=== PATIENT | female | born 1960 | race Caucasian/White ===

== ENCOUNTER 2020-04-10 16:54 | Inpatient (IN) | payer OTHER ==
[~2020-04-10] VITALS: Ht 160 cm; Wt 63.0 kg
[2020-04-10] MEDS ORDERED: ASCORBIC ACID 500 MG TAB PO ONE (17:00)
[2020-04-10] MEDS ORDERED: ZINC SULFATE 220mg CAP or TAB PO ONE (17:00)
[2020-04-10] MEDS ORDERED: DexAMETHasone SOD PHOS 10MG/1ML VIAL INJ IV ONE (17:00)
[2020-04-10] MEDS ORDERED: DOXYCYCLINE 100MG/250ML 250 ML IV ONE (17:00)
[2020-04-10 18:18] LABS: CRP High Sensitivity 0.51 mg/dL (< 0.3)
[2020-04-10 18:29] LABS: Basophils # (auto) 0 10 ^3/uL (0-0.2); Basophils % (auto) 0.4 % (0.0-2.0); Eosinophils # (auto) 0 10 ^3/uL (0-0.8); Eosinophils % (auto) 0.4 % (0.0-7.0); Hematocrit 40.5 % (36.0-46.0); Hemoglobin 13.7 g/dL (12.2-16.2); Lymphocytes # (auto) 3.6 10 ^3/uL (0.4-5.4); Lymphocytes % (auto) 38.8 % (10.0-50.0); Mean Corpuscular Hemoglobin 31.5 pg (28.0-32.0); Mean Corpuscular Hgb Conc. 33.7 g/dL (32.0-36.0); Mean Corpuscular Volume 93.4 fL (80.0-100.0); Monocytes # (auto) 0.8 10 ^3/uL (0-1.3); Monocytes % (auto) 8.4 % (0.0-12.0); Neutrophils # (auto) 4.8 10 ^3/uL (1.6-8.6); Nucleated Red Blood Cells % 0.3 %; Platelet Count (auto) 222 10^3/uL (140-450); Red Blood Cells 4.34 10^6/uL (4.0-5.20); Red Cell Distribution Width 12.9 % (11.8-14.3); White Blood Cell 9.2 10^3/uL (4.4-10.8)
[2020-04-10 18:38] LABS: Albumin 3.4 g/dL (3.4-5.0); Anion Gap 5 (5-15); Blood Urea Nitrogen 17 mg/dL (7-18); Calcium 8.1 mg/dL (8.5-10.1); Carbon Dioxide 28 mmol/L (21-32); Chloride 106 mmol/L (98-107); Glucose 97 mg/dL (74-106); Sodium 139 mmol/L (136-145)
[2020-04-10 18:44] LABS: Alanine Aminotransferase 89 U/L (13-56); Alkaline Phosphatase 122 U/L (45-117); Aspartate Aminotransferase 30 U/L (15-37); BUN/Creatinine Ratio 17.7; Bilirubin, Total 0.3 mg/dL (0.2-1.0); GFR African American 76 mL/min; GFR Non-African American 63 mL/min
[2020-04-10 18:47] LABS: Potassium 2.7 mmol/L (3.5-5.1)
[2020-04-10] MEDS ORDERED: POTASSIUM CHL 20 Meq TABLET PO ONE ×2 (18:53→19:00)
[2020-04-10] MEDS ORDERED: POTASSIUM CHLORIDE 60 MEQ, LIDOCAINE 1% (LOCAL ANESTH.) 6 ML in SODIUM CHL 0.9% 500 ML IV ONE (19:00)
[2020-04-10] MEDS ORDERED: ACETAMINOPHEN 500 MG TAB PO PRN (19:45)
[2020-04-10] MEDS ORDERED: MORPHINE SULF INJ 2 MG/ML SYRINGE 1ML IV PRN (19:45)
[2020-04-10] MEDS ORDERED: ONDANSETRON HCL 4 MG/2 ML VIAL IV PRN (19:45)
[2020-04-10] MEDS ORDERED: DOCUSATE SOD 100 MG CAP PO PRN (19:45)
[2020-04-10] MEDS ORDERED: NITROGLYCERIN 0.4 MG SL TAB SL PRN (19:45)
[2020-04-10] MEDS ORDERED: SOD CHL 0.9%/ KCL 20MEQ 1,000 ML IV SCH (19:45)
[2020-04-10] MEDS ORDERED: ALUM & MAG HYDROX-SIMETH LIQ(MAALOX) 30 ML PO PRN (19:45)
[2020-04-10] MEDS ORDERED: ACETAMINOPHEN 325 MG TAB PO PRN (19:45)
[2020-04-10] MEDS: ALBUTEROL SULF HFA 90MCG INH 200DOSE IN SCH (22:00)
[2020-04-10] MEDS: BUDESONIDE (INHALATION) 180 MCG IH IN SCH (22:00)
[2020-04-10 22:55] VITALS: BP 103/67
--- NOTE | 2020-04-10 22:55 | NUR ---
Telemetry admit from [facility] admitted to Telemetry unit after NO SBAR received. Patient oriented to KIT LEBLANC, RN primary RN, unit, room, bed, and unit policies regarding patient care and visiting hours. Patient now on continuous telemetry monitoring, tele box # 11 and telemetry reading on arrival to unit is sr 74BPM. Patient placed weighed by bedscale and encouraged to call if they need something. All questions and concerns addressed, patient verbalized understanding. bed in low position and call light within reach.
[2020-04-10 23:00] VITALS: BP 103/67
[2020-04-11] VITALS (7 sets, daily range): BP systolic 103–124; BP diastolic 58–77
[2020-04-11] MEDS: HYDROcodone-ACET 5/325MG TAB PO PRN ×2 (00:25→09:50)
--- NOTE | 2020-04-11 00:25 | NUR ---
pain pain 5/10 generalized pain. patient medicated for pain
--- NOTE | 2020-04-11 00:30 | NUR ---
Urine sample sent to lab
--- NOTE | 2020-04-11 01:40 | NUR ---
Respiratory note: PT SEEN AND ASSESSED AT THIS TIME, NO RESPIRATORY DISTRESS NOTED. PT WAS SLEEPING WHEN ENTERING THE ROOM. HR 75 RR 18 SP02 94% ON 1L NASAL CANNULA.
[2020-04-11 02:22] LABS: Urine Bacteria FEW /hpf (None Seen); Urine Blood Negative /uL (Negative); Urine WBC 11 /hpf (0 - 5)
[2020-04-11 02:39] LABS: Alcohol, Urine < 3.0 mg/dL (0-10); Amphetamine Screen, Urine POSITIVE (NEGATIVE); Barbiturate Scree,Urine NEGATIVE (NEGATIVE); Benzodiazephine Screen, Urine NEGATIVE (NEGATIVE); Cannabinoid Screen, Urine NEGATIVE (NEGATIVE); Cocaine Screen, Urine NEGATIVE (NEGATIVE); Opiate Scree,Urine NEGATIVE (NEGATIVE); Phencyclidine Screen, Urine NEGATIVE (NEGATIVE)
--- NOTE | 2020-04-11 03:37 | NUR ---
patient moved to room 248A. no signs of distress or sob or pain noted or reported by patient.
[2020-04-11] MEDS: ALBUTEROL SULF HFA 90MCG INH 200DOSE IN SCH ×3 (06:55→21:44)
[2020-04-11] MEDS: BUDESONIDE (INHALATION) 180 MCG IH IN SCH ×2 (06:55→21:44)
--- NOTE | 2020-04-11 06:55 | NUR ---
Respiratory note: HR 66, RR 14, SPO2 100% ON RA, BS DIMINISHED. MDI/DPI NOT AT BEDSIDE. WILL ORDER FROM PHARMACY. NO SIGNS OR SYMPTOMS OF RESPIRATORY DISTRESS NOTED AT THIS TIME. QUOTATION CLERK CRYSTAL AT BEDSIDE.
--- NOTE | 2020-04-11 07:10 | NUR ---
REPORT GIVEN TO DAYSHIFT RN PATIENT DENIES SOB DISTRESS OR PAIN.
[2020-04-11 07:21] LABS: Basophils # (auto) 0 10 ^3/uL (0-0.2); Basophils % (auto) 0.1 % (0.0-2.0); Eosinophils # (auto) 0 10 ^3/uL (0-0.8); Hematocrit 37.5 % (36.0-46.0); Hemoglobin 12.8 g/dL (12.2-16.2); Lymphocytes # (auto) 1.9 10 ^3/uL (0.4-5.4); Lymphocytes % (auto) 29.2 % (10.0-50.0); Mean Corpuscular Hemoglobin 31.8 pg (28.0-32.0); Mean Corpuscular Volume 93.5 fL (80.0-100.0); Monocytes # (auto) 0.3 10 ^3/uL (0-1.3); Monocytes % (auto) 5.2 % (0.0-12.0); Neutrophils # (auto) 4.2 10 ^3/uL (1.6-8.6); Neutrophils % (auto) 65.5 % (37.0-80.0); Nucleated Red Blood Cells % 0.3 %; Platelet Count (auto) 222 10^3/uL (140-450); Red Blood Cells 4.01 10^6/uL (4.0-5.20); White Blood Cell 6.4 10^3/uL (4.4-10.8)
--- NOTE | 2020-04-11 07:30 | NUR ---
Opening shift note Assumed care, patient found to be AOx4 resting in bed. No s/s of distress noted or reported at this time. Patient states she has pain 4/10 in chest area that increases when she coughs and radiates to her back. Patient refusing pain medication at this time and states she will notify RN when needed. Update on POC give to patient and education regarding use of call light given. Patient verbalizes understanding at this time. Bed in low locked position, call light within reach, will continue care.
[2020-04-11 07:49] LABS: Potassium 4.4 mmol/L (3.5-5.1)
[2020-04-11 07:54] LABS: BUN/Creatinine Ratio 19.6; Bilirubin, Total 0.3 mg/dL (0.2-1.0); Total Protein 6.3 g/dL (6.4-8.2)
[2020-04-11] MEDS: ENOXAPARIN SOD 40 MG/0.4 ML SYRINGE SC SCH (09:50)
[2020-04-11] MEDS: ZINC SULFATE 220mg CAP or TAB PO SCH (09:50)
[2020-04-11] MEDS: DexAMETHasone SOD PHOS 10MG/1ML VIAL INJ IV SCH (09:51)
[2020-04-11] MEDS: CHOLECALCIFEROL (VITD3) 2,000 UNIT CAP PO SCH (09:52)
[2020-04-11] MEDS: ASCORBIC ACID 1,000 MG TAB PO SCH (09:52)
[2020-04-11] MEDS ORDERED: DOXYCYCLINE 100MG/250ML 250 ML IV SCH (10:00)
--- NOTE | 2020-04-11 11:33 | NUR ---
Nutrition Consult/assessment Notes please see attached link for complete assessment Est energy needs BW 59 [id number] kcal (25-30kcal/kg BW), Est protein needs: 59-70g (1-1.2g/kg BW). Will reassess prn. Addendum: 04/11/20 at [address] Amended: Links added.
--- NOTE | 2020-04-11 12:50 | NUR ---
at bedside Dr. Lainez at bedside discussing POC with patient at this time. This RN at bedside.
[2020-04-11] MEDS ORDERED: ACETAMINOPHEN 325 MG TAB PO PRN (13:15)
[2020-04-11] MEDS ORDERED: guaiFENesin-CODEINE Liq 5 ML UD PO PRN (13:15)
[2020-04-11] MEDS ORDERED: AZITHROMYCIN 250 MG TAB PO ONE (13:15)
[2020-04-11] MEDS: LORazepam 0.5 MG TAB PO PRN ×2 (14:19→21:30)
--- NOTE | 2020-04-11 18:37 | NUR ---
In-House Covid swab collected and walked down to lab.
[2020-04-11] MEDS: MORPHINE SULF INJ 2 MG/ML SYRINGE 1ML IV PRN (20:03)
--- NOTE | 2020-04-11 20:04 | NUR ---
Patient complains of headache 10/10 pain. Will medicate for pain per EMAR and reassess in 1 hour.
--- NOTE | 2020-04-11 20:09 | NUR ---
PASSWORDS UPDATE Patient requests her password to be "MOST", will note and ask family members for password before any updates are given.
[2020-04-12 05:10] VITALS: BP 107/61
[2020-04-12] MEDS: BUDESONIDE (INHALATION) 180 MCG IH IN SCH ×2 (06:55→23:36)
[2020-04-12] MEDS: ALBUTEROL SULF HFA 90MCG INH 200DOSE IN SCH ×3 (06:55→23:36)
[2020-04-12] MEDS: MORPHINE SULF INJ 2 MG/ML SYRINGE 1ML IV PRN ×2 (06:55→21:52)
--- NOTE | 2020-04-12 07:09 | NUR ---
IV removal/Insertion Patient accidentally pulled out IV. IV DC'd with clean sterile technique, catheter fully intact. Pressure dressing applied to site. Patient tolerated well. IV access obtained, via clean sterile technique by inserting 22 gauge catheter at the left wrist after 1 attempt. IV secured properly. No trauma to site. Patient tolerated well.
[2020-04-12 08:29] VITALS: BP 104/73
[2020-04-12] MEDS: ZINC SULFATE 220mg CAP or TAB PO SCH (09:39)
[2020-04-12] MEDS: cefTRIAXone 1GM/50ML D5W 50 ML IV SCH (09:39)
[2020-04-12] MEDS: DexAMETHasone SOD PHOS 10MG/1ML VIAL INJ IV SCH (09:39)
[2020-04-12] MEDS: CHOLECALCIFEROL (VITD3) 2,000 UNIT CAP PO SCH (09:40)
[2020-04-12] MEDS: AZITHROMYCIN 250 MG TAB PO SCH (09:40)
[2020-04-12] MEDS: ENOXAPARIN SOD 40 MG/0.4 ML SYRINGE SC SCH (09:40)
[2020-04-12] MEDS: ASCORBIC ACID 1,000 MG TAB PO SCH (09:40)
[2020-04-12 12:20] VITALS: BP 125/82
[2020-04-12] MEDS: HYDROcodone-ACET 5/325MG TAB PO PRN (13:32)
[2020-04-12 17:00] VITALS: BP 91/63
--- NOTE | 2020-04-12 19:30 | NUR ---
OPENING SHIFT NOTE Assumed care of patient who is A&O x4. Currently on RA with no s/s of distress. Reports pressure in chest upon deep inspiration and cough with green sputum. PIV in right wrist is intact and patent. Flushed with 10ml NS. Patient is ambulatory without the use of assistive devices at baseline. POC discussed and patient verbalizes understanding. Bed is in low locked position with side rails up x2. Call light is within reach and patient encouraged to call for assistance when needed. Will continue to monitor for changes PRN.
--- NOTE | 2020-04-12 21:20 | NUR ---
AMA According to patient, friends arrived to ER to bean picker patient's car buck. Car buck was left in the Ante room, to be picked up by resource nurse and taken down to ER when available. According to patient, her friends had to leave prior to the buck being brought to them. No call from ER staff received indicating that anyone had arrived to bean picker patient's car buck. Patient is now upset, stating that she is going to leave the unit AMA so that she can handle her personal affairs. Patient advised against leaving AMA. Encouraged to stay overnight as discharge is planned for tomorrow. Patient verbalizes understanding, yet states that she is still going to leave. Patients car buck returned. Patient then laid down on right side, covering herself with her blanket and refused to continue conversation with this RN. Patient remains on unit in her room at this time. Will continue to monitor.
[2020-04-12 22:00] VITALS: BP 139/89
[2020-04-13 05:00] VITALS: BP 120/71
[2020-04-13] MEDS: BUDESONIDE (INHALATION) 180 MCG IH IN SCH (07:27)
[2020-04-13] MEDS: ALBUTEROL SULF HFA 90MCG INH 200DOSE IN SCH ×2 (07:27→15:10)
[2020-04-13 08:36] VITALS: BP 120/60
[2020-04-13] MEDS: LORazepam 0.5 MG TAB PO PRN (09:03)
[2020-04-13] MEDS: CHOLECALCIFEROL (VITD3) 2,000 UNIT CAP PO SCH (09:25)
[2020-04-13] MEDS: ASCORBIC ACID 1,000 MG TAB PO SCH (09:25)
[2020-04-13] MEDS: cefTRIAXone 1GM/50ML D5W 50 ML IV SCH (09:25)
[2020-04-13] MEDS: ZINC SULFATE 220mg CAP or TAB PO SCH (09:25)
[2020-04-13] MEDS: AZITHROMYCIN 250 MG TAB PO SCH (09:26)
[2020-04-13] MEDS: ENOXAPARIN SOD 40 MG/0.4 ML SYRINGE SC SCH (09:26)
[2020-04-13] MEDS: DexAMETHasone SOD PHOS 10MG/1ML VIAL INJ IV SCH (11:23)
[2020-04-13 12:11] VITALS: BP 121/66
--- NOTE | 2020-04-13 16:04 | NUR ---
Discharge instructions given as ordered. Encourage to follow up with PMD as instructed. INSTRUCTED TO TAKE NEW MEDICATIONS PRESCRIBED. PROVIDED WITH TERRY JEANETTE CARD FOR PCP. PROVIDED WITH [facility]RGENT [facility]ARE CLIN[facility] SHEET. INSTRUCTED TO FOLLOW UP WITH PCP. All questions and concerns addressed. Patient verbalized understanding. IV removed with catheter intact, pressure dressing applied. Telemetry unit returned to ICU. Patient taken to vehicle via wheelchair with all personal belongings, accompanied by staff and family member. No distress noted at time of departure.
== END 2020-04-13 16:04 | disposition home or self-care (01) | DRG 137 ==
LOC: ER 16:54 → TELE 16:55 → TELE-EAST 23:20
PROVIDERS: ADMIT Hospitalist; ATTEND Internal Medicine
DX: U07.1 COVID-19 (principal); J12.89 Other viral pneumonia; E87.6 Hypokalemia; J44.1 Chronic obstructive pulmonary disease with (acute) exacerbation; F15.10 Other stimulant abuse, uncomplicated; Z90.49 Acquired absence of other specified parts of digestive tract
CPT/HCPCS: 36415; 71045; 80053; 80307; 81001; 82728; 83036; 83605; 83615; 83735; 83880; 84132; 84443; 84484; 85025; 85379; 86141; 87081; 87086; 93005; 94640; 99291; G0378; J0696; J1100; J2001; J3490

== ENCOUNTER 2020-04-16 17:13 | Emergency (ER) | payer OTHER ==
[~2020-04-16] VITALS: Ht 157.5 cm; Wt 59.0 kg
[2020-04-16 17:14] VITALS: BP 124/85
== END 2020-04-16 21:10 | disposition home or self-care (01) ==
LOC: ER 17:13
DX: F41.9 Anxiety disorder, unspecified (principal)